=== PATIENT | male | born 1985 | race Caucasian/White ===

== ENCOUNTER 2020-06-29 20:01 | Inpatient (IN) | payer MEDICAID ==
[~2020-06-29] VITALS: Ht 170.2 cm; Wt 72.9 kg
[2020-06-29 21:47] LABS: COVID AG,FIA SOURCE NASOPHARYNGEAL
[2020-06-29] MEDS ORDERED: ZOLPIDEM TARTRATE 10 MG TABLET PO PRN (22:15)
[2020-06-29] MEDS ORDERED: OLANZapine 5 MG RAPDIS TABLET PO PRN (22:15)
[2020-06-30 03:08] LABS: BASOPHILS % (AUTO) 0.9 % (0.0-2.0); EOSINOPHILS % (AUTO) 1.8 % (1.0-6.0); HEMATOCRIT 41.5 % (41-53); LYMPHOCYTES # (AUTO) 1.7 K/uL (1.0-4.8); LYMPHOCYTES % (AUTO) 32.1 % (22.0-44.0); MEAN CORPUSCULAR HGB CONC 33.7 G/dL (31.0-37.0); MEAN CORPUSCULAR VOLUME 92 fL (80-100); MONOCYTES # (AUTO) 0.7 K/uL (0.1-1.0); NEUTROPHILS # (AUTO) 2.8 K/uL (1.8-7.7); NEUTROPHILS % (AUTO) 52.2 % (40.0-70.0); PLATELET COUNT (AUTO) 216 K/uL (150-450); RED BLOOD CELL COUNT(AUTO) 4.52 MIL/uL (4.50-5.90); RED CELL DISTRIBUTION WIDTH 12.6 % (11.5-14.5)
[2020-06-30 03:16] LABS: ANION GAP 7 mmol/L (8-16); CALCIUM, TOTAL 8.9 mg/dL (8.8-10.5); CARBON DIOXIDE 28 mmol/L (22-29); CHLORIDE 104 mmol/L (98-107); CREATININE 0.82 mg/dL (0.60-1.30); GLOMERULAR FILTR. RATE CALC > 60 mL/min (>60); GLUCOSE,RANDOM 81 mg/dL (70-110); POTASSIUM 3.7 mmol/L (3.5-5.1); SODIUM SERUM 139 mmol/L (136-145); UREA NITROGEN, BLOOD 15 mg/dL (7-18)
[2020-06-30 03:24] LABS: ALANINE AMINOTRANSFERASE 30 U/L (12-78); ALBUMIN 3.7 g/dL (3.4-5.0); ALKALINE PHOSPHATASE 47 U/L (46-116); ASPARTATE AMINOTRANSFERASE 30 U/L (15-37); BILIRUBIN,TOTAL 0.8 mg/dL (0.1-1.0); CHOL/HDL RATIO 1.8 (4.2-7.3); CHOLESTEROL 102 mg/dL (131-200); HDL CHOLESTEROL 57 mg/dL (40-60); LDL CHOL (CALC.) 40 mg/dL (0-130); TRIGLYCERIDES 24 mg/dL (15-150)
[2020-06-30] MEDS ORDERED: HALOPERIDOL LACTATE 5 MG/ML VIAL ONE (08:09)
[2020-06-30] MEDS ORDERED: LORazepam 2 MG/ML VIAL ONE (08:09)
[2020-06-30] MEDS ORDERED: DiphenhydrAMINE HCL 50 MG/ML VIAL ONE (08:09)
[2020-06-30] MEDS ORDERED: DiphenhydrAMINE HCL 50 MG/ML VIAL IM ONE (08:15)
[2020-06-30] MEDS ORDERED: HALOPERIDOL LACTATE 5 MG/ML VIAL IM ONE (08:15)
[2020-06-30] MEDS ORDERED: LORazepam 2 MG/ML VIAL IM ONE (08:15)
[2020-06-30 08:18] LABS: APPEARANCE,URINE CLEAR (CLEAR); GLUCOSE, URINE (UA) NEGATIVE (NEGATIVE); KETONES,URINE 15 mg/dL (NEGATIVE); LEUKOCYTE ESTERASE ,URINE NEGATIVE (NEGATIVE); NITRATE,URINE NEGATIVE (NEGATIVE); OCCULT BLOOD,URINE NEGATIVE (NEGATIVE); PH,URINE 5.5 (5.0-8.0); PROTEIN,URINE NEGATIVE (NEGATIVE); UROBILINOGEN,URINE 0.2 mg/dL (<=1.0)
[2020-06-30 08:21] LABS: AMPHET/METH SCREEN,URINE POSITIVE (NEGATIVE); BARBITURATE SCREEN, URINE NEGATIVE (NEGATIVE); BENZODIAZEPINES SCREEN,URINE NEGATIVE (NEGATIVE); CANNABINOID SCREEN,URINE POSITIVE (NEGATIVE); COCAINE SCREEN,URINE NEGATIVE (NEGATIVE); METHADONE SCREEN, URINE NEGATIVE (NEGATIVE); OPIATE SCREEN,URINE POSITIVE (NEGATIVE); PHENCYCLIDINE SCREEN,URINE NEGATIVE (NEGATIVE)
[2020-06-30 08:25] LABS: BILIRUBIN,URINE PRELIM. POSITIVE (NEGATIVE)
[2020-06-30 08:28] LABS: BACTERIA,URINE None Seen /HPF (None Seen); RBC,URINE 0-2 /HPF (0-2); WBC,URINE 0-2 /HPF (0-5)
[2020-06-30 13:24] VITALS: BP 109/60
[2020-06-30] MEDS ORDERED: INFLUENZA VIRUS VACCINE QVS 2020-21 (6MO+)/PF 60 MCG/0.5 ML SYRINGE IM ONE (13:30)
[2020-06-30 16:12] VITALS: BP 125/80
[2020-06-30] MEDS: RisperiDONE 1 MG TABLET PO SCH (22:06)
[2020-07-01 06:13] VITALS: BP 115/78
[2020-07-01] MEDS ORDERED: DIVALPROEX SODIUM 500 MG DR TABLET PO SCH (09:00)
[2020-07-01] MEDS: LORazepam 2 MG TABLET PO PRN (09:18)
[2020-07-01] MEDS: RisperiDONE 1 MG TABLET PO SCH (09:19)
[2020-07-01 10:00] VITALS: BP 147/71
[2020-07-01] MEDS ORDERED: MAGNESIUM HYDROXIDE SUSPENSION 30 ML UDCUP PO PRN (14:00)
[2020-07-01] MEDS ORDERED: TUBERCULIN, PURIFIED PROTEIN DERIVATIVE 5 TU/0.1 ML SYRINGE ID ONE (14:00)
[2020-07-01] MEDS ORDERED: MAG HYDROX/AL HYDROX/SIMETH ES 30 ML SUSPENSION UDCUP PO PRN (14:00)
[2020-07-01] MEDS ORDERED: PROMETHAZINE HCL 25 MG TABLET PO PRN (14:00)
[2020-07-01] MEDS ORDERED: ACETAMINOPHEN 325 MG TABLET PO PRN (14:00)
[2020-07-01] MEDS ORDERED: GuaiFENesin/D-METHORPHAN [SUGAR-FREE] 200-20MG/10 ML SYRUP UDCUP PO PRN (14:00)
[2020-07-01] MEDS ORDERED: LOPERAMIDE HCL 2 MG CAPSULE PO PRN (14:00)
[2020-07-01] MEDS ORDERED: HydrOXYzine PAMOATE 50 MG CAPSULE PO PRN (14:00)
[2020-07-01 16:27] VITALS: BP 114/68
[2020-07-01] MEDS: DIVALPROEX SODIUM 500 MG DR TABLET PO SCH (17:28)
[2020-07-01] MEDS: THIAMINE 100 MG TABLET PO SCH (17:29)
[2020-07-01] MEDS ORDERED: HALOPERIDOL LACTATE 5 MG/ML VIAL IM ONE (19:00)
[2020-07-01] MEDS ORDERED: DiphenhydrAMINE HCL 50 MG/ML VIAL IM ONE (19:00)
[2020-07-01] MEDS ORDERED: LORazepam 2 MG/ML VIAL IM ONE (19:00)
[2020-07-01] MEDS ORDERED: LORazepam 2 MG/ML VIAL ONE (19:01)
[2020-07-01] MEDS ORDERED: HALOPERIDOL LACTATE 5 MG/ML VIAL ONE (19:02)
[2020-07-01] MEDS ORDERED: DiphenhydrAMINE HCL 50 MG/ML VIAL ONE (19:02)
[2020-07-01] MEDS: OLANZapine 5 MG RAPDIS TABLET PO SCH (21:00)
[2020-07-02 06:53] VITALS: BP 120/81
[2020-07-02 08:14] VITALS: BP 126/70
[2020-07-02] MEDS: NALTREXONE HCL 50 MG TABLET PO SCH (08:38)
[2020-07-02] MEDS: OMEGA-3/DHA/EPA/FISH OIL 1,000 MG CAPSULE PO SCH (08:38)
[2020-07-02] MEDS: LORazepam 2 MG TABLET PO PRN ×2 (08:38→16:40)
[2020-07-02] MEDS: MULTIVITAMINS WITH MINERALS, THERAPEUTIC TABLET PO SCH (08:38)
[2020-07-02] MEDS: FOLIC ACID 1 MG TABLET PO SCH (08:38)
[2020-07-02] MEDS: DIVALPROEX SODIUM 500 MG DR TABLET PO SCH ×3 (08:38→16:40)
[2020-07-02] MEDS: THIAMINE 100 MG TABLET PO SCH ×2 (08:38→16:40)
[2020-07-02 16:37] VITALS: BP 116/72
[2020-07-02] MEDS: OLANZapine 5 MG RAPDIS TABLET PO SCH (20:30)
[2020-07-03 04:08] VITALS: BP 125/68
[2020-07-03 08:15] VITALS: BP 138/71
[2020-07-03] MEDS: MULTIVITAMINS WITH MINERALS, THERAPEUTIC TABLET PO SCH (09:00)
[2020-07-03] MEDS: DIVALPROEX SODIUM 500 MG DR TABLET PO SCH ×3 (09:00→16:49)
[2020-07-03] MEDS: NALTREXONE HCL 50 MG TABLET PO SCH (09:00)
[2020-07-03] MEDS: THIAMINE 100 MG TABLET PO SCH ×2 (09:00→16:53)
[2020-07-03] MEDS: FOLIC ACID 1 MG TABLET PO SCH (09:00)
[2020-07-03] MEDS: OMEGA-3/DHA/EPA/FISH OIL 1,000 MG CAPSULE PO SCH (09:00)
[2020-07-03] MEDS ORDERED: DiphenhydrAMINE HCL 50 MG/ML VIAL ONE (11:29)
[2020-07-03] MEDS ORDERED: HALOPERIDOL LACTATE 5 MG/ML VIAL ONE (11:29)
[2020-07-03] MEDS ORDERED: LORazepam 2 MG/ML VIAL ONE (11:29)
[2020-07-03] MEDS ORDERED: DiphenhydrAMINE HCL 50 MG/ML VIAL IM ONE (13:15)
[2020-07-03] MEDS ORDERED: HALOPERIDOL LACTATE 5 MG/ML VIAL IM ONE (13:15)
[2020-07-03] MEDS ORDERED: LORazepam 2 MG/ML VIAL IM ONE (13:15)
[2020-07-03] MEDS: LORazepam 2 MG TABLET PO PRN (16:50)
[2020-07-03 16:59] VITALS: BP 101/63
[2020-07-03] MEDS: OLANZapine 5 MG RAPDIS TABLET PO SCH (20:49)
[2020-07-04 04:10] VITALS: BP 118/66
[2020-07-04 08:15] VITALS: BP 116/68
[2020-07-04 08:37] LABS: CHOL/HDL RATIO 3.1 (4.2-7.3); FREE T4 (FREE THYROXINE) 0.73 ng/dL (0.76-1.46); THYROID STIMULATING HORMONE 1.3 uIU/mL (0.36-3.74)
[2020-07-04] MEDS: DIVALPROEX SODIUM 500 MG DR TABLET PO SCH ×3 (10:08→16:41)
[2020-07-04] MEDS: NALTREXONE HCL 50 MG TABLET PO SCH (10:08)
[2020-07-04] MEDS: OMEGA-3/DHA/EPA/FISH OIL 1,000 MG CAPSULE PO SCH (10:09)
[2020-07-04] MEDS: LORazepam 2 MG TABLET PO PRN ×2 (10:09→16:41)
[2020-07-04] MEDS: THIAMINE 100 MG TABLET PO SCH ×2 (10:09→16:41)
[2020-07-04] MEDS: MULTIVITAMINS WITH MINERALS, THERAPEUTIC TABLET PO SCH (10:09)
[2020-07-04] MEDS: FOLIC ACID 1 MG TABLET PO SCH (10:09)
[2020-07-04] MEDS ORDERED: DiphenhydrAMINE HCL 50 MG/ML VIAL ONE (10:39)
[2020-07-04] MEDS ORDERED: LORazepam 2 MG/ML VIAL ONE (10:39)
[2020-07-04] MEDS ORDERED: HALOPERIDOL LACTATE 5 MG/ML VIAL ONE (10:40)
[2020-07-04] MEDS ORDERED: DiphenhydrAMINE HCL 50 MG/ML VIAL IM ONE (11:00)
[2020-07-04] MEDS ORDERED: HALOPERIDOL LACTATE 5 MG/ML VIAL IM ONE (11:00)
[2020-07-04] MEDS ORDERED: LORazepam 2 MG/ML VIAL IM ONE (11:00)
[2020-07-04 11:50] VITALS: BP 125/61
[2020-07-04] MEDS: OLANZapine 10 MG RAPDIS TABLET PO SCH (20:39)
[2020-07-05 04:17] VITALS: BP 125/70
[2020-07-05] MEDS: OMEGA-3/DHA/EPA/FISH OIL 1,000 MG CAPSULE PO SCH (09:05)
[2020-07-05] MEDS: LORazepam 2 MG TABLET PO PRN (09:05)
[2020-07-05] MEDS: THIAMINE 100 MG TABLET PO SCH ×2 (09:05→17:05)
[2020-07-05] MEDS: DIVALPROEX SODIUM 500 MG DR TABLET PO SCH ×3 (09:05→17:05)
[2020-07-05] MEDS: MULTIVITAMINS WITH MINERALS, THERAPEUTIC TABLET PO SCH (09:05)
[2020-07-05] MEDS: FOLIC ACID 1 MG TABLET PO SCH (09:05)
[2020-07-05] MEDS: NALTREXONE HCL 50 MG TABLET PO SCH (09:05)
[2020-07-05] MEDS: OLANZapine 10 MG RAPDIS TABLET PO SCH (20:09)
[2020-07-05] MEDS ORDERED: LORazepam 2 MG/ML VIAL ONE ×2 (23:24→23:27)
[2020-07-05] MEDS ORDERED: HALOPERIDOL LACTATE 5 MG/ML VIAL ONE (23:28)
[2020-07-05] MEDS ORDERED: LORazepam 2 MG/ML VIAL IM ONE (23:30)
[2020-07-05] MEDS ORDERED: DiphenhydrAMINE HCL 50 MG/ML VIAL IM ONE (23:30)
[2020-07-05] MEDS ORDERED: HALOPERIDOL LACTATE 5 MG/ML VIAL IM ONE (23:30)
[2020-07-06] MEDS: MULTIVITAMINS WITH MINERALS, THERAPEUTIC TABLET PO SCH (10:12)
[2020-07-06] MEDS: DIVALPROEX SODIUM 500 MG DR TABLET PO SCH ×3 (10:12→16:28)
[2020-07-06] MEDS: THIAMINE 100 MG TABLET PO SCH ×2 (10:12→16:28)
[2020-07-06] MEDS: FOLIC ACID 1 MG TABLET PO SCH (10:12)
[2020-07-06] MEDS: LORazepam 2 MG TABLET PO PRN ×2 (10:12→16:28)
[2020-07-06] MEDS: NALTREXONE HCL 50 MG TABLET PO SCH (10:12)
[2020-07-06] MEDS: OMEGA-3/DHA/EPA/FISH OIL 1,000 MG CAPSULE PO SCH (10:12)
[2020-07-06] MEDS ORDERED: PALI234D IM (13:24)
[2020-07-06] MEDS ORDERED: DIVA-112 PO (13:24)
[2020-07-06] MEDS ORDERED: NALT50TA PO (13:24)
[2020-07-06] MEDS ORDERED: PALIPERIDONE PALMITATE 234 MG/1.5 ML SYRINGE IM ONE (16:00)
[2020-07-06 16:25] VITALS: BP 114/62
[2020-07-06] MEDS: OLANZapine 10 MG RAPDIS TABLET PO SCH (20:28)
[2020-07-07 02:29] VITALS: BP 118/64
[2020-07-07 08:13] VITALS: BP 113/67
[2020-07-07] MEDS: NALTREXONE HCL 50 MG TABLET PO SCH (08:25)
[2020-07-07] MEDS: MULTIVITAMINS WITH MINERALS, THERAPEUTIC TABLET PO SCH (08:25)
[2020-07-07] MEDS: FOLIC ACID 1 MG TABLET PO SCH (08:25)
[2020-07-07] MEDS: OMEGA-3/DHA/EPA/FISH OIL 1,000 MG CAPSULE PO SCH (08:25)
[2020-07-07] MEDS: DIVALPROEX SODIUM 500 MG DR TABLET PO SCH (08:25)
[2020-07-07] MEDS: THIAMINE 100 MG TABLET PO SCH (08:25)
[2020-08-03] MEDS ORDERED: PALIPERIDONE PALMITATE 234 MG/1.5 ML SYRINGE IM SCH (09:00)
== END 2020-07-07 12:46 | disposition home or self-care (01) | DRG 750 ==
LOC: EMS 20:01 → B3A 06-30 11:49
PROVIDERS: ADMIT Psychiatry & Neurology Psychiatry; ATTEND Psychiatry & Neurology Psychiatry
DX: F20.0 Paranoid schizophrenia (principal); F12.90 Cannabis use, unspecified, uncomplicated; Z20.828 Contact with and (suspected) exposure to other viral communicable diseases; Z59.0 Homelessness; Z91.19 Patient's noncompliance with other medical treatment and regimen; Z55.9 Problems related to education and literacy, unspecified; Z65.3 Problems related to other legal circumstances
CPT/HCPCS: 83036; 84439; 84443; 87426; 90686; G0480; J1200; J1630; J2060

== ENCOUNTER 2022-01-04 15:10 | Emergency (ER) | payer MEDICAID, OTHER ==
[~2022-01-04] VITALS: Ht 177.8 cm; Wt 78.6 kg
[~2022-01-04 15:10] MED LIST: DIVA-112 PO; NALT50TA PO; PALI234D IM
[2022-01-04] MEDS ORDERED: HALO1TAB19 PO (15:17)
[2022-01-04] MEDS ORDERED: KETOROLAC TROMETHAMINE 10 MG TABLET PO ONE (15:45)
[2022-01-04] MEDS ORDERED: CEPHALEXIN MONOHYDRATE 500 MG CAPSULE PO ONE (16:30)
[2022-01-04] MEDS ORDERED: POVIDONE-IODINE 10% 15 ML SOLUTION UD TP ONE (16:30)
[2022-01-04] MEDS ORDERED: BACITRACIN 0.9 GM PACKET OINTMENT TP ONE (16:30)
[2022-01-04] MEDS ORDERED: CEPH-558 PO (16:46)
[2022-01-04 17:07] VITALS: BP 131/84
== END 2022-01-04 17:12 | disposition home or self-care (01) ==
LOC: EMS 15:16
DX: S62.300A Unspecified fracture of second metacarpal bone, right hand, initial encounter for closed fracture (principal); F41.9 Anxiety disorder, unspecified; F20.9 Schizophrenia, unspecified; F17.210 Nicotine dependence, cigarettes, uncomplicated; F12.90 Cannabis use, unspecified, uncomplicated; F15.90 Other stimulant use, unspecified, uncomplicated; Z91.09 Other allergy status, other than to drugs and biological substances; X58.XXXA Exposure to other specified factors, initial encounter; Y93.89 Activity, other specified; Y92.89 Other specified places as the place of occurrence of the external cause; Y99.8 Other external cause status
CPT/HCPCS: 99284; 73100-99; 73130-TC; Z7502; Z7610